=== PATIENT | female | born 1965 | race Caucasian/White ===

== ENCOUNTER → 2019-05-25 10:38 | Outpatient (BNVA) | payer BC, SELFPAY | PROVIDERS: Family Provider Internal Medicine; PCP Nurse Practitioner Family; Visit Provider Nurse Practitioner Family | DX: E78.2 Mixed hyperlipidemia (principal); I10 Essential (primary) hypertension; E55.9 Vitamin D deficiency, unspecified; Z79.899 Other long term (current) drug therapy; M54.9 Dorsalgia, unspecified | CPT/HCPCS: 80053; 80061; 81001; 82306; 83036; 84443; 85025 ==

== ENCOUNTER → 2022-05-21 14:24 | Outpatient (BNVA) | payer SELFPAY | PROVIDERS: Family Provider Internal Medicine; PCP Nurse Practitioner Family; Visit Provider Nurse Practitioner | DX: R73.09 Other abnormal glucose (principal) | CPT/HCPCS: 80053; 83036 ==

== ENCOUNTER 2023-04-21 11:34 | Outpatient (CLI) | payer BC, SELFPAY ==
[2023-04-21 11:47] VITALS: BMI 28.3
--- NOTE | 2023-04-21 11:50 | ECG_ITS ---
[facility] Test Date: 2023-04-21 Pat Name: Reena Tom Department: Room: Gender: Female Launch Steward: : 1965 Requested By: Malinda Luciano Order Number: [id number] Higgins MD: Favian Gleason M.D. Interpretive Statements NAME OF STUDY: TREADMILL STRESS TEST INDICATION: Chest Pain; Strong family hx of premature CAD My treadmill PROCEDURE: At the baseline, the patient's blood pressure was 115/64 with a heart rate of 90. The baseline electrocardiogram showed normal sinus rhythm with diffuse nonspecific T wave changes. The patient exercised for 7 minutes and 13 seconds on a standard Renato protocol. Patient attained a maximum heart rate of 141 beats per minute(86% of the maximum predicted heart rate) with a blood pressure at the peak exercise of 170/56 mm Hg. The EKG at the peak exercise revealed diffuse nonspecific ST-T changes. Patient did not have any chest pain or any significant cardiac arrhythmias with the exercise During the recovery phase, there were no new changes. Blood pressure at the end of the recovery phase was 112/82 mm Hg with a heart rate of 94 per minute. CONCLUSION: 1. Nonspecific EKG changes with the treadmill exercise 2. No exercise-induced chest pain or cardiac arrhythmia 3. Fair exercise tolerance, attained a maximum of 10.2 METs Electronically Signed On 04-24-2023 19:22:58 CDT by Favian Gleason M.D. [id number]
[2023-04-21 13:07] VITALS: BP 126/84; PULSE 72
== END 2023-04-21 11:35 | disposition home or self-care (01) ==
PROVIDERS: PCP Family Medicine; Visit Provider Family Medicine
DX: I25.10 Atherosclerotic heart disease of native coronary artery without angina pectoris (principal); Z82.49 Family history of ischemic heart disease and other diseases of the circulatory system
CPT/HCPCS: 93017

== ENCOUNTER 2023-05-25 08:24 | Outpatient (CLI) | payer BC, SELFPAY ==
--- NOTE | 2023-05-25 08:30 | MM_ITS ---
WS: [id number] BILATERAL 3D TOMOSYNTHESIS DIGITAL SCREENING MAMMOGRAPHY WITH CAD CLINICAL INFORMATION: breast cancer screening HISTORY: Screening mammogram. No current complaints. COMPARISON: Outside examination 2004 and prior examination 2012 TECHNIQUE: Bilateral CC and MLO views. FINDINGS: Scattered fibroglandular densities bilaterally. There are a few incidental punctate calcifications. Slightly spiculated small focal asymmetric density upper outer LEFT breast posterior depth. Recommend further evaluation with LEFT breast diagnostic mammography and ultrasound. RIGHT breast is unchanged and unremarkable. MM/[place] [id number] IMPRESSION: BI-RADS: 0-Incomplete: Need additional imaging evaluation FOLLOW UP: Need Additional Imaging Recommend LEFT breast diagnostic mammography and ultrasound.
== END 2023-05-25 08:25 | disposition home or self-care (01) ==
LOC: RAD 08:25
PROVIDERS: PCP Family Medicine; Visit Provider Family Medicine
DX: Z12.31 Encounter for screening mammogram for malignant neoplasm of breast (principal); Z00.00 Encounter for general adult medical examination without abnormal findings; N64.89 Other specified disorders of breast
CPT/HCPCS: 77063; 77067; 80053; 80061; 82306; 82607; 84443; 85025

== ENCOUNTER 2023-07-08 11:52 | Outpatient (CLI) | payer BC, SELFPAY ==
--- NOTE | 2023-07-08 12:00 | MM_ITS ---
WS: [id number] LEFT 3D TOMOSYNTHESIS DIGITAL MAMMOGRAPHY WITH CAD CLINICAL INFORMATION: f/u abnormal screening mammo HISTORY: Additional views COMPARISON: 05/25/2023 TECHNIQUE: 3 views of the left breast were obtained. FINDINGS: Scattered fibroglandular densities of the left breast. Again seen is a tiny slightly spiculated focal asymmetric density upper outer LEFT breast posterior depth. This partially compresses out on the spo t compression views. Ultrasound of this area is pending. ULTRASOUND BREAST LEFT TECHNIQUE: Ultrasound left breast focused area of concern. CLINICAL INFORMATION: f/u abnormal screening mammo COMPARISON: None. FINDINGS: Ultrasound LEFT breast 1 o'clock position 1 cm from the nipple demonstrates a lobulated hypoechoic le suzi taller than wide measuring 4 x 5 x 3 mm. Lesion demonstrates irregular margins and is indetermin ate. Recommend further evaluation with ultrasound-guided biopsy. MM/[place] [id number] IMPRESSION: BI-RADS: 4-Suspicious Finding-Biopsy Should Be Considered FOLLOW UP: US Guided Biopsy Recommended Recommend ultrasound-guided biopsy of the small LEFT breast lesion
--- NOTE | 2023-07-08 12:30 | US_ITS ---
WS: [id number] LEFT 3D TOMOSYNTHESIS DIGITAL MAMMOGRAPHY WITH CAD CLINICAL INFORMATION: f/u abnormal screening mammo HISTORY: Additional views COMPARISON: 05/25/2023 TECHNIQUE: 3 views of the left breast were obtained. FINDINGS: Scattered fibroglandular densities of the left breast. Again seen is a tiny slightly spiculated focal asymmetric density upper outer LEFT breast posterior depth. This partially compresses out on the spo t compression views. Ultrasound of this area is pending. ULTRASOUND BREAST LEFT TECHNIQUE: Ultrasound left breast focused area of concern. CLINICAL INFORMATION: f/u abnormal screening mammo COMPARISON: None. FINDINGS: Ultrasound LEFT breast 1 o'clock position 1 cm from the nipple demonstrates a lobulated hypoechoic le suzi taller than wide measuring 4 x 5 x 3 mm. Lesion demonstrates irregular margins and is indetermin ate. Recommend further evaluation with ultrasound-guided biopsy. US/US breast LT limited* [id number] IMPRESSION: BI-RADS: 4-Suspicious Finding-Biopsy Should Be Considered FOLLOW UP: US Guided Biopsy Recommended Recommend ultrasound-guided biopsy of the small LEFT breast lesion
== END 2023-07-08 11:53 | disposition home or self-care (01) ==
LOC: RAD 11:54
PROVIDERS: PCP Family Medicine; Visit Provider Family Medicine
DX: R92.8 Other abnormal and inconclusive findings on diagnostic imaging of breast (principal)
CPT/HCPCS: 76642; 77061; G0279

== ENCOUNTER 2023-08-04 12:05 | Outpatient (CLI) | payer BC, SELFPAY ==
--- NOTE | 2023-08-04 13:15 | US_ITS ---
WS: [id number] ULTRASOUND-GUIDED LEFT BREAST BIOPSY HISTORY: Suspicious mass LEFT breast 1:00. COMPARISON: 07/08/2023 and 05/25/2023 Procedure, risks and complications are explained to the patient. Medications are reviewed. Consent is obtained. The mass in the LEFT breast is localized with ultrasound. Mass localizes to 1:00, 1 cm from the nippl e. Skin is cleansed with ChloraPrep and anesthetized with 1% buffered lidocaine. Small dermatome is m kemar. Under sterile conditions mass is biopsied with a 14-gauge Achieve needle. Multiple core biopsies are performed. Material placed in formalin and sent to pathology for review. No complications encoun tered. Breast tissue marker (Bard ultrasound enhanced ribbon): Single. Patient left the radiology suite with no complications. Patient is instructed to return to [facility] with any concerns. US/[place] [id number] IMPRESSION: 1. Uncomplicated core needle biopsy LEFT breast mass at 1:00. PATHOLOGY: Fibrocystic changes with apocrine metaplasia. Negative for malignanc y. RECOMMENDATION: Diagnostic LEFT mammogram and ultrasound follow-up in 6 months.
== END 2023-08-04 12:06 | disposition home or self-care (01) ==
LOC: RAD 12:09
PROVIDERS: PCP Family Medicine; Visit Provider Family Medicine
DX: R92.8 Other abnormal and inconclusive findings on diagnostic imaging of breast (principal)
CPT/HCPCS: 19083; 88305